=== PATIENT | male | born 1995 | race Caucasian/White ===

== ENCOUNTER 2016-04-19 16:30 | Emergency (ER) | payer BC ==
[2016-04-19 17:27] VITALS: BP 124/85
[2016-04-19] MEDS ORDERED: Ibuprofen TAB* 600 MG PO ONE (17:49)
--- NOTE | 2016-04-19 18:01 | UC ---
UC General HPI - HPI Summary HPI Summary: patient woke up at 4 am with fever, body aches, SAMUEL and malaise - History of Current Complaint Chief Complaint: UCGeneralIllness Stated Complaint: FLU SXS Time Seen by Provider: 04/19/16 17:46 Hx Obtained From: Patient Onset/Duration: Sudden Onset, Lasting Hours Timing: Constant Onset Severity: Moderate Current Severity: Moderate Pain Intensity: 6 Associated Signs & Symptoms: Positive: Dizziness, Fever, Headache, Nausea, Weakness - Allergy/Home Medications Allergies/Adverse Reactions: Allergies Allergy/AdvReac Type Severity Reaction Status Date / Time Acetaminophen Allergy Vomiting Verified 04/19/16 17:27 [From Hydrocodone W/Acetaminophen] Hydrocodone Allergy Vomiting Verified 04/19/16 17:27 [From Hydrocodone W/Acetaminophen] Home Medications: Home Medications [id number] W/ APAP [Mucinex Fast-Max Cold/Flu [id number] mg] 1 cap PO DAILY 04/19/16 [History Confirmed 04/19/16] PMH/Surg Hx/FS Hx/Imm Hx Previously Healthy: Yes - Surgical History Surgical History: Yes Surgery Procedure, Year, and Place: T&A age 5 - Family History Known Family History: Negative: Cardiac Disease, Hypertension - Social History Alcohol Use: Weekly Substance Use Type: None Smoking Status (MU): Never Smoked Tobacco - Immunization History Most Recent Influenza Vaccination: 01/01 Review of Systems Constitutional: Fever, Chills, Fatigue Skin: Negative Eyes: Negative ENT: Sore Throat, Nasal Discharge Respiratory: Shortness Of Breath, Cough Gastrointestinal: Negative Genitourinary: Negative Motor: Negative Neurovascular: Negative Musculoskeletal: Myalgia Neurological: Headache Psychological: Negative All Other Systems Reviewed And Are Negative: Yes Physical Exam Triage Information Reviewed: Yes Appearance: Well-Nourished, Ill-Appearing, Pain Distress Vital Signs: Initial Vital Signs Temp 100.4 F 04/19/16 17:23 Pulse 96 04/19/16 17:23 Resp 16 04/19/16 17:23 BP 124/85 04/19/16 17:23 Pulse Ox 97 04/19/16 17:23 Vital Signs Reviewed: Yes Eye Exam: Normal Eyes: Positive: Conjunctiva Clear ENT Exam: Normal ENT: Positive: Hearing grossly normal, Pharyngeal erythema, Nasal congestion, TM red, Tonsillar swelling Dental Exam: Normal Neck exam: Normal Neck: Positive: Supple, Nontender, No Lymphadenopathy Respiratory Exam: Normal Respiratory: Positive: Chest non-tender, Lungs clear, Normal breath sounds, Wheezing, Inspiration Cardiovascular Exam: Normal Cardiovascular: Positive: RRR, No Murmur, Pulses Normal Abdominal Exam: Normal Abdomen Description: Positive: Nontender, No Organomegaly, Soft Bowel Sounds: Positive: Present Musculoskeletal Exam: Normal Musculoskeletal: Positive: Strength Intact, ROM Intact, No Edema Neurological Exam: Normal Neurological: Positive: Alert, Muscle Tone Normal Psychological Exam: Normal Skin Exam: Normal Course/Dx - Course Course Of Treatment: history obtained, exam performed, flu swab obtained and neg , ibuprofen given, treated with tamiflu based on clinical presentation of flu. discusses side effects and benefits for medication and patient opted for the tamilfu - Differential Dx - Multi-Symptom Provider Diagnoses: fever. myalgia. headache. nasal congestion Discharge - Discharge Plan Condition: Stable Disposition: HOME Patient Education Materials: Influenza (ED) Forms: *School Release Additional Instructions: take the medication as prescribed. increase your fluid intake and get plenty of rest.
== END 2016-04-19 18:31 | disposition home or self-care (01) ==
LOC: UCCORT 16:30
DX: R09.81 Nasal congestion (principal); M79.1 Myalgia; Z88.5 Allergy status to narcotic agent
CPT/HCPCS: 87502; 99202; A9270-GY; G0463